=== PATIENT | male | born 1990 | race Caucasian/White ===

== ENCOUNTER 2020-08-13 09:33 | Emergency (ER) | payer OTHER, SELFPAY ==
[2020-08-13 09:43] VITALS: BP 108/70; PULSE 83; RESP 16; TEMP 36.8; O2SAT 98; BMI 21.9
--- NOTE | 2020-08-13 09:48 | XR_ITS ---
EXAMINATION: XR HAND, LEFT CLINICAL INFORMATION: Blunt injury, pain technique definitely ring and with use to window COMPARISON: Radiographs left wrist 01/20/2017 and left hand 01/17/2017 TECHNIQUE: PA, lateral, and oblique views of the left hand. FINDINGS: There is no visible acute or healing fracture, dislocation, or destructive process. Bony mineralization is normal. The ulnar variance is neutral. No visible radiopaque soft tissue from body. XR/XR hand LT 2V IMPRESSION: Normal left hand.
--- NOTE | 2020-08-13 10:56 | ED.EXTPRO ---
HPI - Extremity Problem General Chief complaint: Extremity Injury, Upper Stated complaint: hand injury work related Time Seen by Provider: 08/13/20 10:56 History of Present Illness HPI Narrative: Patient complains of left hand pain after hitting it with a hammer, no numbness no weakness no paresthesias no other injury no laceration Related Data Previous Rx's Medication Instructions Recorded ibuprofen 600 mg PO Q6H PRN #20 tab 08/13/20 Allergies Allergy/AdvReac Type Severity Reaction Status Date / Time No Known Allergies Allergy Unverified 04/09/20 17:22 [No Known Allergies*] Review of Systems Review of Systems: Positive for left hand pain No dizziness no weakness no numbness no paresthesias no laceration PMFSH Past Medical History Source: nursing notes reviewed Medical History (Updated 08/13/20 @ 11:01 by MIRIAM Luu) No known health problems Social History Social History Smoked in Last 30 Days: No Use of substances other than those prescribed or required for medical reasons: Yes Substance Use Type: Marijuana Substance Use Frequency: Daily Last Used Substance: Days (ago) Any prior treatment program specific to substance use: No Advance Directives: No Advance Directives Information Provided: No Physical Exam Vital Signs: Vital Signs: Last Vital Signs Temp 98.2 F 08/13/20 09:43 Pulse 83 08/13/20 09:43 Resp 16 08/13/20 09:43 BP 108/70 08/13/20 09:43 Pulse Ox 98 08/13/20 09:43 Body Mass Index 21.9 General appearance no distress, comfortable relaxed and cooperative Neck is supple Respiratory no acute distress Extremities the left hand over the 2nd MCP joint at the base of the index finger has some mild ecchymosis and some pain with flexion and extension, mild swelling, neurovascular intact distal, skin is intact, no laceration Skin no rashes Neuro no focal deficit Course Course Course Narrative: X-ray of the left hand was normal and patient was discharged diagnosis of contusion to the left hand Discharge Plan Discharge Clinical Impression: Contusion of left hand Qualifiers: Encounter type: initial encounter Qualified Code(s): S60.222A - Contusion of left hand, initial encounter Patient Disposition: Home, Self-Care Additional Instructions: X-ray was normal, no broken bone If symptoms continue and you need further evaluation follow with [facility] for work related injury Prescriptions: New ibuprofen 600 mg tablet 600 mg PO Q6H PRN (Reason: pain) Qty: 20 RF: 0 Referrals: [facility] [Provider Group] - 2 days (Left hand injury) Stand Alone Forms: Work/School Release Interventions: ED Discharge Assessment Last Done: 08/13/20 11:25 Discharge Date/Time: 08/13/20 11:25
== END 2020-08-13 11:25 | disposition home or self-care (01) ==
PROVIDERS: Emergency Provider Emergency Medicine Emergency Medical Services
DX: S60.222A Contusion of left hand, initial encounter (principal); M79.642 Pain in left hand; F12.90 Cannabis use, unspecified, uncomplicated; Y29.XXXA Contact with blunt object, undetermined intent, initial encounter; Y93.9 Activity, unspecified; Y92.9 Unspecified place or not applicable; Y99.9 Unspecified external cause status
CPT/HCPCS: 73120; 99283